=== PATIENT | male | born 1950 | race Caucasian/White ===

== ENCOUNTER 2016-09-10 12:57 | Emergency (ER) | payer BC ==
[~2016-09-10] VITALS: Ht 167.6 cm; Wt 63.5 kg
== END 2016-09-10 16:50 | disposition home or self-care (01) ==
LOC: ER 12:57
DX: R53.81 Other malaise (principal); D72.829 Elevated white blood cell count, unspecified; K21.9 Gastro-esophageal reflux disease without esophagitis; Z79.899 Other long term (current) drug therapy; Z88.1 Allergy status to other antibiotic agents
CPT/HCPCS: 36415; 96365; J1580